=== PATIENT | female | born 1965 | race Caucasian/White ===

== ENCOUNTER 2020-03-07 22:20 | Emergency (ER) | payer MEDICAID, SELFPAY ==
[~2020-03-07] VITALS: Ht 152.4 cm; Wt 52.2 kg
[2020-03-07 22:22] VITALS: Ht 152.4 cm; Wt 52.2 kg
[2020-03-08 00:26] VITALS: BP 134/70
== END 2020-03-08 00:26 | disposition home or self-care (01) ==
LOC: ED 22:20
DX: B34.9 Viral infection, unspecified (principal); Z20.828 Contact with and (suspected) exposure to other viral communicable diseases; F17.210 Nicotine dependence, cigarettes, uncomplicated; Z71.6 Tobacco abuse counseling
CPT/HCPCS: 87804; 99406